=== PATIENT | female | born 1995 | race Caucasian/White ===

== ENCOUNTER 2017-07-18 08:38 | Outpatient (CLI) | END 2017-07-18 08:40 | LOC: AMBL 08:38 | PROVIDERS: ATTEND Emergency Medicine | DX: S40.812A Abrasion of left upper arm, initial encounter (principal); S40.811A Abrasion of right upper arm, initial encounter; R51 Headache; V59.9XXA Occupant (driver) (passenger) of pick-up truck or van injured in unspecified traffic accident, initial encounter ==